=== PATIENT | male | born 2000 | race Two or more races ===

== ENCOUNTER 2024-07-01 11:17 | Emergency (ER) | payer OTHER ==
[~2024-07-01] VITALS: Ht 188 cm; Wt 96.6 kg
== END 2024-07-01 17:21 | disposition home or self-care (01) ==
LOC: ER 11:19
DX: J06.9 Acute upper respiratory infection, unspecified (principal); Z91.013 Allergy to seafood; Z91.018 Allergy to other foods; Z20.822 Contact with and (suspected) exposure to COVID-19